=== PATIENT | male | born 1990 | race Caucasian/White ===

== ENCOUNTER 2016-06-27 04:58 | Emergency (ER) | payer MEDICAID ==
[2016-06-27 06:00] VITALS: BP 122/76
== END 2016-06-27 06:00 | disposition home or self-care (01) ==
LOC: ED 04:58
DX: S83.004A Unspecified dislocation of right patella, initial encounter (principal); X58.XXXA Exposure to other specified factors, initial encounter; Y93.66 Activity, soccer; Y99.8 Other external cause status; Y92.89 Other specified places as the place of occurrence of the external cause
CPT/HCPCS: Q0092